=== PATIENT | male | born 1970 | race Caucasian/White ===

== ENCOUNTER 2025-07-13 08:41 | Outpatient (CLI) | payer BC | END 2025-07-13 08:42 | disposition home or self-care (01) | LOC: CSHSLEEP 08:41 | PROVIDERS: ATTEND Family Medicine | DX: G47.33 Obstructive sleep apnea (adult) (pediatric) (principal); R53.83 Other fatigue; E66.9 Obesity, unspecified; Z68.34 Body mass index [BMI] 34.0-34.9, adult | CPT/HCPCS: 95800 ==